=== PATIENT | female | born 1970 | race Two or more races ===

== ENCOUNTER 2018-10-29 13:39 | Emergency (ER) | payer SELFPAY ==
[~2018-10-29] VITALS: Ht 152.4 cm; Wt 45.4 kg
--- NOTE | 2018-10-29 13:45 | NUR ---
PT BIBRA FROM HOME C/O LOWER BACK PAIN. PT HAS HX OF KIDNEY STONE. PT ON MONITOR IN BED 12. WILL CONTINUE TO MONITOR.
[2018-10-29] MEDS ORDERED: KETOROLAC TROMETHAMINE INJ 30 MG/ML VIAL IV ONE (14:30)
[2018-10-29] MEDS ORDERED: IV NS 0.9% 1,000 ML BAG IV ONE (14:30)
[2018-10-29 14:32] LABS: BASOPHILS # (AUTO) 0.1 /CMM (0.0-0.2); BASOPHILS % (AUTO) 0.6 % (0.0-2.0); EOSINOPHILS % (AUTO) 1.8 % (0.0-6.0); HEMATOCRIT 45 % (33-45); HEMOGLOBIN 15.2 g/dL (11.5-14.8); LYMPHOCYTES # (AUTO) 1.6 /CMM (0.8-4.8); LYMPHOCYTES % (AUTO) 16.6 % (20.0-44.0); MEAN CORPUSCULAR HGB CONC 34 g/dl (31.0-36.0); MEAN CORPUSCULAR VOLUME 91 fL (82-100); MONOCYTES # (AUTO) 0.5 /CMM (0.1-1.30); NEUTROPHILS # (AUTO) 7.2 /CMM (1.8-8.9); PLATELET COUNT (AUTO) 319 /CMM (150-450); RED BLOOD CELL COUNT(AUTO) 4.96 MIL/uL (4.0-5.2); WHITE BLOOD COUNT (AUTO) 9.5 K/uL (4.3-11.0)
[2018-10-29 14:40] LABS: CALCIUM, SERUM 8.8 mg/dL (8.5-10.1); CREATININE 0.6 mg/dL (0.6-1.3); POTASSIUM 3.5 mmol/L (3.5-5.1)
[2018-10-29 14:45] LABS: ALBUMIN 3.7 g/dL (3.4-5.0); BILIRUBIN,DIRECT 0.1 mg/dL (0.0-0.2); BILIRUBIN,TOTAL 0.6 mg/dL (0.2-1.0); TOTAL PROTEIN, SERUM 6.9 g/dL (6.4-8.2)
[2018-10-29] MEDS ORDERED: KETOROLAC TROMETHAMINE INJ 30 MG/ML VIAL ONE (14:56)
--- NOTE | 2018-10-29 15:05 | NUR ---
PT FAMILY AT BEDSIDE.
--- NOTE | 2018-10-29 16:58 | NUR ---
PT GIVEN WATER TO PROVIDE URINE SAMPLE. PT RESTING COMFORTABLY IN BED. VSS. WILL CONTINUE TO MONITOR.
--- NOTE | 2018-10-29 17:23 | NUR ---
PT URINATED. COLLECTED AND SENT TO LAB.
[2018-10-29 17:42] LABS: APPEARANCE,URINE Clear (CLEAR); BILIRUBIN,URINE Negative (NEGATIVE); BLOOD, URINE Moderate Ery/uL (NEGATIVE); COLOR,URINE Yellow (YELLOW); KETONES,URINE 15 (NEGATIVE); LEUKOCYTE ESTERASE ,URINE Negative (NEGATIVE); NITRITE, URINE Negative (NEGATIVE); PH,URINE 7.5 (5.0-8.0); PROTEIN,URINE Negative (NEGATIVE); UGLUCOSE Negative (NEGATIVE); UROBILINOGEN,URINE 0.2 EU/dL (0.2)
[2018-10-29 18:09] LABS: BACTERIA,URINE Few /HPF (None Seen)
[2018-10-29 18:10] LABS: MUCUS,URINE Few /LPF (None Seen); SQUAMOUS EPITHELIAL CELL,UR Few /HPF (None Seen)
--- NOTE | 2018-10-29 18:42 | NUR ---
IV removed. Catheter intact and site benign. Pressure and 4x4 applied to site. No bleeding noted.Patient discharged to home in stable condition. Written and verbal after care instructions given. Patient verbalizes understanding of instruction. PT AMBULATORY WITH STEADY GAIT ACCOMPANIED BY SPOUSE.
[2018-10-29 18:43] VITALS: BP 113/78
== END 2018-10-29 18:44 | disposition home or self-care (01) ==
LOC: ER 13:41
DX: R10.31 Right lower quadrant pain (principal); E86.0 Dehydration; Z87.442 Personal history of urinary calculi
CPT/HCPCS: 36415; 74176; 80048; 80076; 81001; 83690; 84702; 84703; 85025; 87077; 87086; 96360; 99284; A4606; J7030; Z7610; 81000-TC; J1885